=== PATIENT | male | born 1940 | race Caucasian/White ===

== ENCOUNTER 2016-12-02 18:45 | Emergency (ER) | payer MEDICARE ==
[~2016-12-02] VITALS: Ht 172.7 cm; Wt 75.0 kg
[~2016-12-02 18:45] MED LIST: AMLO5TAB22 PO; ASPI81 PO; BENA20 PO; KLOR20TA6 PO; NITR.3 SL; POTA-243 PO; SIMV40 PO; TOPR25TA2 PO; WARF5 PO; WARF7.5 PO
[2016-12-02 18:48] VITALS: BP 198/80; PULSE 60; RESP 20; TEMP 97.7; O2SAT 98
[2016-12-02] MEDS ORDERED: SODIUM CHLORIDE 0.9% FLUSH 10 ML FLUSH IV FLUSH PRN (19:15)
[2016-12-02] MEDS ORDERED: MIDAZOLAM HCL 2 MG/2 ML VIAL IV PUSH ONE (19:15)
[2016-12-02] MEDS ORDERED: GLUCAGON 1 MG/ML VIAL IV PUSH ONE (19:15)
--- NOTE | 2016-12-02 19:27 | PD ---
HPI . Esophageal foreign body Chief Complaint: Foreign Body Time Seen by Provider: 19:01 Travel History International Travel<30 days: No Contact w/Intl Traveler<30days: No Traveled to known affect area: No History of Present Illness HPI Patient presents with the chief complaint of an esophageal foreign body. He has been having this sensation for about 3 days now. He states that he has been able to tolerate some food. His disagrees with this. She states that he has had a choking sensation after supper the last 3 nights and that he is spitting up "phlegm." They do report a previous similar history which required EGD for removal of the food bolus. Patient reports no pain. It is difficult for me to get a handle on the severity of his symptoms because he is stating that he is tolerating some food and liquid while his is stating that he has been regurgitating. PFSH Past Medical History Hx Anticoagulant Therapy: Yes Asthma: No Atrial Fibrillation: Yes Autoimmune Disease: No Blood Disorders: No Heart Rhythm Problems: Yes (AF) Cancer: Yes (Skin cancer ) Cardiac Catheterization: Yes Cardiovascular Problems: Yes ([facility] heart valve) High Cholesterol: Yes Chemotherapy: No COPD: No Diminished Hearing: No Endocrine: No Genitourinary: No Hypertension: Yes Immune Disorder: No Implanted Vascular Access Dvce: Yes Neurologic: No Psychiatric: No Reproductive: No Respiratory: No Immunizations Current: Yes Radiation Therapy: No Sleep Apnea: No Past Surgical History Abdominal Surgery: Yes (gall bladder and appendix) Appendectomy: Yes Body Medical Devices: Heart Valve Cardiac Surgery: Yes (AVR) Cholecystectomy: Yes Ear Surgery: No Endocrine Surgery: No Eye Surgery: No Genitourinary Surgery: No Gynecologic Surgery: No Hysterectomy: Yes (HTN, AVR) Oral Surgery: No Valve Replacement: Yes (AVR) Social History Alcohol Use: No Tobacco Use: No Substance Use: No Allergies-Medications (Allergen,Severity, Reaction): Coded Allergies: No Known Allergies (Unverified , 12/02/16) Reported Meds & Prescriptions Reported Meds & Active Scripts Active Review of Systems Except as stated in HPI: all other systems reviewed are Neg General / Constitutional: No: Fever, Chills Gastrointestinal: Positive: Dysphagia, Other (esophageal foreign body sensation ), No: Nausea, Vomiting, Diarrhea, Abdominal Pain Physical Exam Narrative GENERAL: Healthy-appearing man in no acute distress. SKIN: Warm and dry. HEAD: Atraumatic. Normocephalic. EYES: Pupils equal and round. Extraocular movements are intact. ENT: No nasal bleeding or discharge. Mucous membranes pink and moist. NECK: Trachea midline. Neck is supple. CARDIOVASCULAR: Regular rate and rhythm. Mechanical heart valve. RESPIRATORY: No accessory muscle use. Lungs are clear. GASTROINTESTINAL: Abdomen soft, non-tender, nondistended. MUSCULOSKELETAL: No obvious deformities. No edema. NEUROLOGICAL: Awake and alert. No obvious cranial nerve deficits. Motor grossly within normal limits. Normal speech. PSYCHIATRIC: Appropriate mood and affect; insight and judgment normal. Data Data Last Documented VS Vital Signs Date Time Temp Pulse Resp B/P Pulse Ox O2 Delivery O2 Flow Rate FiO2 12/02/16 18:48 97.7 60 20 198/80 98 Room Air Orders Basic Metabolic Panel (Bmp) (12/02/16 19:12) Complete Blood Count With Diff (12/02/16 19:12) Iv Access Insert/Monitor (12/02/16 19:12) Sodium Chloride 0.9% Flush (Ns Flush) (12/02/16 19:15) Prothrombin Time / Inr (Pt) (12/02/16 19:12) Glucagon Inj (Glucagon Inj) (12/02/16 19:15) Fentanyl Inj (Fentanyl Inj) (12/02/16 19:15) Midazolam Inj (Versed Inj) (12/02/16 19:15) Labs Laboratory Tests Test 12/02/16 19:25 White Blood Count 6.6 TH/MM3 Red Blood Count 4.50 MIL/MM3 Hemoglobin 13.9 GM/DL Hematocrit 40.0 % Mean Corpuscular Volume 88.8 FL Mean Corpuscular Hemoglobin 30.9 PG Mean Corpuscular Hemoglobin 34.8 % Concent Red Cell Distribution Width 13.6 % Platelet Count 185 TH/MM3 Mean Platelet Volume 7.5 FL Neutrophils (%) (Auto) 50.0 % Lymphocytes (%) (Auto) 34.8 % Monocytes (%) (Auto) 10.2 % Eosinophils (%) (Auto) 4.3 % Basophils (%) (Auto) 0.7 % Neutrophils # (Auto) 3.3 TH/MM3 Lymphocytes # (Auto) 2.3 TH/MM3 Monocytes # (Auto) 0.7 TH/MM3 Eosinophils # (Auto) 0.3 TH/MM3 Basophils # (Auto) 0.0 TH/MM3 CBC Comment DIFF FINAL Differential Comment Prothrombin Time 25.0 SEC Prothromb Time International 2.2 RATIO Ratio Carbon Dioxide Level 31.6 MEQ/L Blood Urea Nitrogen 11 MG/DL Creatinine 0.87 MG/DL Estimat Glomerular Filtration 85 ML/MIN Rate Random Glucose 97 MG/DL Calcium Level 8.9 MG/DL MDM Medical Decision Making Medical Screen Exam Complete: Yes Emergency Medical Condition: Yes Medical Record Reviewed: Yes (patient was seen here on 12/25/15 with similar complaints. He was taken for EGD and was found to have a fluid bolus of the above the upper esophageal sphincter. The esophagus looked otherwise normal.) Differential Diagnosis Differential diagnosis includes but is not limited to partial esophageal obstruction, complete esophageal obstruction, foreign-body sensation Narrative Course Patient presents complaining with an esophageal foreign body. He is on Coumadin because of his artificial valve. I have ordered routine labs including an INR. In the meantime, I will give him a dose of fentanyl and Versed for relaxation and a dose of glucagon. I will then give him a fluid challenge. The patient feels that the foreign body has completely resolved. He was able to tolerate fluids without any difficulty. Diagnosis Primary Impression: Esophageal foreign body Qualified Code: T18.108A - Esophageal foreign body, initial encounter Patient Instructions: Esophageal Foreign Body (ED), General Instructions Additional Instructions: Follow-up with your md psychiatry for further evaluation. Chew your food well. Disposition: 01 DISCHARGE HOME Condition: Stable Shyanne Rankin MD December 02, 2016 19:27
[2016-12-02 19:35] LABS: AUTOMATED NEUTROPHIL # 3.3 TH/MM3 (1.8-7.7); BASOPHIL % 0.7 % (0.0-2.0); EOSINOPHIL # 0.3 TH/MM3 (0-0.4); EOSINOPHIL % 4.3 % (0.0-4.0); HEMO FLAGS DIFF FINAL; LYMPH % 34.8 % (9.0-44.0); LYMPHOCYTE # 2.3 TH/MM3 (1.0-4.8); MEAN CELL VOLUME 88.8 FL (80.0-100.0); MEAN CORPUSCULAR HEMOGLOBIN 30.9 PG (27.0-34.0); MEAN CORPUSCULAR HGB CONC 34.8 % (32.0-36.0); MONO % 10.2 % (0.0-8.0); PLATELET COUNT 185 TH/MM3 (150-450); RED CELL DISTRIBUTION WIDTH 13.6 % (11.6-17.2); WHITE BLOOD COUNT 6.6 TH/MM3 (4.0-11.0)
[2016-12-02 19:45] LABS: INTERNATIONAL NORMALIZED RATIO 2.2 RATIO
[2016-12-02 20:03] LABS: BICARBONATE 31.6 MEQ/L (21.0-32.0)
[2016-12-02] MEDS ORDERED: COUM7.5T PO (20:36)
[2016-12-02] MEDS ORDERED: SIMV40TA PO (20:36)
[2016-12-02] MEDS ORDERED: AMLO5TAB2 PO (20:36)
[2016-12-02] MEDS ORDERED: POTA-163 PO (20:36)
[2016-12-02] MEDS ORDERED: TOPR25TA PO (20:36)
[2016-12-02] MEDS ORDERED: ASPI81CH CHEW (20:36)
[2016-12-02] MEDS ORDERED: COUM5TAB PO (20:36)
[2016-12-02] MEDS ORDERED: LOTE20TA PO (20:36)
[2016-12-02 20:40] LABS: POTASSIUM 4.3 MEQ/L (3.5-5.1)
== END 2016-12-02 21:38 | disposition home or self-care (01) ==
LOC: NEPD 18:45
DX: T18.128A Food in esophagus causing other injury, initial encounter (principal); I48.91 Unspecified atrial fibrillation; I10 Essential (primary) hypertension; X58.XXXA Exposure to other specified factors, initial encounter
CPT/HCPCS: 80048; 85025; 85610; 96374; 96375; 99283; J1610; J3010

== ENCOUNTER → 2017-06-09 | Outpatient (CLI) | payer MEDICARE ==
[~2017-06-09] MED LIST changes: +AMLO5TAB2 PO; -AMLO5TAB22 PO; +ASPI-516 CHEW; -ASPI81 PO; -BENA20 PO; +COUM5TAB PO; +COUM7.5T PO; -KLOR20TA6 PO; +LOTE20TA PO; -NITR.3 SL; +POTA-163 PO; -POTA-243 PO; -SIMV40 PO; +SIMV40TA PO; +TOPR25TA PO; -TOPR25TA2 PO; -WARF5 PO; -WARF7.5 PO
[2017-06-09 14:32] LABS: HDL CHOLESTEROL 52.3 MG/DL (40.0-60.0); INDIRECT BILIRUBIN 0.4 MG/DL (0.0-0.8); TOTAL BILIRUBIN ADULT 0.6 MG/DL (0.2-1.0)
== END ==
LOC: PLAB 07:44
PROVIDERS: ATTEND Internal Medicine Cardiovascular Disease
DX: Z79.899 Other long term (current) drug therapy (principal)
CPT/HCPCS: 36415; 80061; 80076

== ENCOUNTER 2017-07-05 10:38 | Emergency (ER) | payer MEDICARE ==
[~2017-07-05] VITALS: Ht 172.7 cm; Wt 71.3 kg
[2017-07-05 10:41] VITALS: BP 149/80; PULSE 102; RESP 14; TEMP 98.6; O2SAT 98
[2017-07-05] MEDS ORDERED: ATOR40TA16 PO (10:56)
[2017-07-05 10:57] VITALS: BP 138/73; PULSE 72; RESP 18; O2SAT 98
[2017-07-05 11:22] LABS: AUTOMATED NEUTROPHIL # 6.7 TH/MM3 (1.8-7.7); BASOPHIL # 0.1 TH/MM3 (0-0.2); BASOPHIL % 1.5 % (0.0-2.0); EOSINOPHIL # 0.1 TH/MM3 (0-0.4); EOSINOPHIL % 1.6 % (0.0-4.0); LYMPH % 20.2 % (9.0-44.0); LYMPHOCYTE # 1.8 TH/MM3 (1.0-4.8); MEAN CELL VOLUME 89.2 FL (80.0-100.0); MEAN CORPUSCULAR HGB CONC 33.6 % (32.0-36.0); NEUT % 72.7 % (16.0-70.0); PLATELET COUNT 219 TH/MM3 (150-450); RED BLOOD COUNT 4.93 MIL/MM3 (4.50-5.90); RED CELL DISTRIBUTION WIDTH 13.2 % (11.6-17.2); WHITE BLOOD COUNT 9.1 TH/MM3 (4.0-11.0)
[2017-07-05 11:24] LABS: HEMO FLAGS DIFF FINAL
[2017-07-05 11:30] LABS: CHLORIDE 101 MEQ/L (98-107); POTASSIUM 4.3 MEQ/L (3.5-5.1); SODIUM (NA) 135 MEQ/L (136-145)
[2017-07-05 11:33] LABS: APTT (PATIENT) 38.9 SEC (24.3-30.1); INTERNATIONAL NORMALIZED RATIO 3.9 RATIO; PROTHROMBIN TIME - PATIENT 38.7 SEC (9.8-11.6)
[2017-07-05 11:34] LABS: ANION GAP 6 MEQ/L (5-15); BICARBONATE 27.7 MEQ/L (21.0-32.0); MAGNESIUM 2.2 MG/DL (1.5-2.5)
[2017-07-05 11:35] LABS: BLOOD UREA NITROGEN 12 MG/DL (7-18)
[2017-07-05 11:37] LABS: ALT (GPT) 30 U/L (12-78); AST (GOT) 31 U/L (15-37); GLOMERULAR FILTRATION RATE 90 ML/MIN (>89)
[2017-07-05 11:38] VITALS: BP 116/73; PULSE 84; RESP 20; O2SAT 98
[2017-07-05 11:39] LABS: TOTAL BILIRUBIN ADULT 0.8 MG/DL (0.2-1.0)
[2017-07-05 11:40] LABS: ALKALINE PHOSPHATASE 68 U/L (45-117)
--- NOTE | 2017-07-05 12:07 | PD ---
HPI Chief Complaint: Cardiac Complaint Time Seen by Provider: 10:54 Travel History International Travel<30 days: No Contact w/Intl Traveler<30days: No Traveled to known affect area: No History of Present Illness HPI This is a 77-year-old male who presents to the emergency department with palpitations that have been going on for 3-4 days, constant, moderate severity, worse with exertion, improved with rest. He says his heart rate usually runs in the 50s to 60s but is been running in the 80s to 100 range. He says he feels like he is in atrial fibrillation. He says he just saw Dr. Sanders one week ago and had a normal checkup including an echo. He doesn't think he was in atrial fibrillation at that time. He denies any chest pain or trouble breathing and denies any leg swelling. He is on Coumadin and has an aortic valve replacement. PFSH Past Medical History Hx Anticoagulant Therapy: Yes Asthma: No Atrial Fibrillation: Yes Autoimmune Disease: No Blood Disorders: No Heart Rhythm Problems: Yes (AF) Cancer: Yes (Skin cancer ) Cardiac Catheterization: Yes Cardiovascular Problems: Yes (aortic valve replacement) High Cholesterol: Yes Chemotherapy: No COPD: No Diminished Hearing: No Endocrine: No Genitourinary: No Hypertension: Yes Immune Disorder: No Implanted Vascular Access Dvce: Yes Neurologic: No Psychiatric: No Reproductive: No Respiratory: No Immunizations Current: Yes Radiation Therapy: No Sleep Apnea: No Tetanus Vaccination: > 5 Years Influenza Vaccination: No ?: Not Past Surgical History Abdominal Surgery: Yes (gall bladder and appendix) Appendectomy: Yes Body Medical Devices: Heart Valve Cardiac Surgery: Yes (AVR) Cholecystectomy: Yes Ear Surgery: No Endocrine Surgery: No Eye Surgery: No Genitourinary Surgery: No Gynecologic Surgery: No Hysterectomy: Yes (HTN, AVR) Oral Surgery: No Valve Replacement: Yes (AVR) Social History Alcohol Use: No Tobacco Use: No Substance Use: No Allergies-Medications (Allergen,Severity, Reaction): Coded Allergies: No Known Allergies (Unverified Adverse Reaction, Unknown, 07/05/17) Reported Meds & Prescriptions Reported Meds & Active Scripts Active Reported Atorvastatin (Atorvastatin Calcium) 40 Mg Tab 40 Mg PO BID Coumadin (Warfarin) 7.5 Mg Tab 7.5 Mg PO EVERYDAY BUT MON Coumadin (Warfarin) 5 Mg Tab 5 Mg PO MONDAYS PRN Potassium Chloride ER (Potassium Chloride) 20 Meq Tab 30 Meq PO 10 MG AM,20MG PM Toprol XL (Metoprolol Succinate) 25 Mg Tab 25 Mg PO BID Lotensin (Benazepril HCl) 20 Mg Tab 20 Mg PO BID Aspirin 81 Mg Chew 81 Mg CHEW DAILY Amlodipine (Amlodipine Besylate) 5 Mg Tab 5 Mg PO BID Review of Systems Except as stated in HPI: all other systems reviewed are Neg Physical Exam Narrative GENERAL:Well appearing, no acute distress SKIN: Focused skin assessment warm and dry. HEAD: Atraumatic. Normocephalic. EYES: Pupils equal and round. No injection or drainage. ENT: Moist mucous membranes NECK: Trachea midline. CARDIOVASCULAR: Irregularly irregular. No murmur appreciated. RESPIRATORY: Clear to auscultation. Breath sounds equal bilaterally. GASTROINTESTINAL: Abdomen soft, non-tender, nondistended. MUSCULOSKELETAL: No obvious deformities. NEUROLOGICAL: Awake and alert. No obvious cranial nerve deficits. Moving all extremities.. PSYCHIATRIC: Appropriate mood and affect; insight and judgment normal. Data Data Last Documented VS Vital Signs Date Time Temp Pulse Resp B/P (MAP) Pulse Ox O2 Delivery O2 Flow Rate FiO2 07/05/17 11:38 84 20 116/73 (87) 98 Room Air 07/05/17 10:41 98.6 Orders Orders Complete Blood Count With Diff (07/05/17 11:08) Comprehensive Metabolic Panel (07/05/17 11:08) Magnesium (Mg) (07/05/17 11:08) Prothrombin Time / Inr (Pt) (07/05/17 11:09) Act Partial Throm Time (Ptt) (07/05/17 11:09) Electrocardiogram (07/05/17 ) Labs Laboratory Tests Test 07/05/17 11:10 White Blood Count 9.1 TH/MM3 Red Blood Count 4.93 MIL/MM3 Hemoglobin 14.8 GM/DL Hematocrit 44.0 % Mean Corpuscular Volume 89.2 FL Mean Corpuscular Hemoglobin 30.0 PG Mean Corpuscular Hemoglobin Concent 33.6 % Red Cell Distribution Width 13.2 % Platelet Count 219 TH/MM3 Mean Platelet Volume 7.6 FL Neutrophils (%) (Auto) 72.7 % Lymphocytes (%) (Auto) 20.2 % Monocytes (%) (Auto) 4.0 % Eosinophils (%) (Auto) 1.6 % Basophils (%) (Auto) 1.5 % Neutrophils # (Auto) 6.7 TH/MM3 Lymphocytes # (Auto) 1.8 TH/MM3 Monocytes # (Auto) 0.4 TH/MM3 Eosinophils # (Auto) 0.1 TH/MM3 Basophils # (Auto) 0.1 TH/MM3 CBC Comment DIFF FINAL Differential Comment Prothrombin Time 38.7 SEC Prothromb Time International Ratio 3.9 RATIO Activated Partial Thromboplast Time 38.9 SEC Blood Urea Nitrogen 12 MG/DL Creatinine 0.83 MG/DL Random Glucose 123 MG/DL Total Protein 7.3 GM/DL Albumin 3.6 GM/DL Calcium Level 9.1 MG/DL Magnesium Level 2.2 MG/DL Alkaline Phosphatase 68 U/L Aspartate Amino Transf (AST/SGOT) 31 U/L Alanine Aminotransferase (ALT/SGPT) 30 U/L Total Bilirubin 0.8 MG/DL Sodium Level 135 MEQ/L Potassium Level 4.3 MEQ/L Chloride Level 101 MEQ/L Carbon Dioxide Level 27.7 MEQ/L Anion Gap 6 MEQ/L Estimat Glomerular Filtration Rate 90 ML/MIN [facility] Medical Decision Making Medical Screen Exam Complete: Yes Emergency Medical Condition: Yes Interpretation(s) afebrile, mild tachycardia, hypertensive No leukocytosis Mild hyponatremia INR is 3.9 EKG: Atrial fibrillation, left axis deviation, left ventricular hypertrophy, lateral ST depressions in 1 and aVL Differential Diagnosis Atrial fibrillation, electrolyte abnormality, myocardial infarction, rapid ventricular response Narrative Course This is a 77-year-old male who presents to the emergency department with atrial fibrillation that has been going on for 4 days. His INR is slightly supratherapeutic. Electrolytes were obtained which were all reassuring. I spoke to Dr. sanders would like the patient to drive over to the outpatient cardiology unit at [place] for a cardioversion. The patient was instructed not to eat or drink. He will be discharged. Diagnosis Primary Impression: Atrial fibrillation Qualified Codes: I48.0 - Paroxysmal atrial fibrillation Patient Instructions: General Instructions Additional Instructions: If you develop severe chest pain, shortness of breath, sweating, lightheadedness , dizziness or difficulty breathing return to the emergency department immediately. Follow-up immediately with Dr. Sanders at the outpatient cardiology catheterization lab (Doc-U) at [place] immediately following your discharge. Do not eat or drink anything. Med/Other Pt SpecificInfo: No Change to Meds Disposition: 01 DISCHARGE HOME Condition: Stable Elyssa Menendez MD Jul 05, 2017 12:07
--- NOTE | 2017-07-05 17:51 | EKG ---
Date Performed: 07/05/2017 Time Performed: 10:54:38 PTAGE: 77 years EKG: ATRIAL FIBRILLATION WITH ABERRANT CONDUCTION OR VENTRICULAR PREMATURE COMPLEXES MARKED LEFT AXIS DEVIATION MODERATE INTRAVENTRICULAR CONDUCTION DELAY VOLTAGE CRITERIA FOR LVH NONSPECIFIC T-WAV E ABNORMALITY Since previous tracing, no significant change noted ABNORMAL ECG PREVIOUS TRACING : 11/06/2015 14.22.54 DOCTOR: Kait Austin Interpretating Date/Time 07/05/2017 17:50:51
== END 2017-07-05 12:41 | disposition home or self-care (01) ==
LOC: PHED 10:38
DX: I48.0 Paroxysmal atrial fibrillation (principal); R94.31 Abnormal electrocardiogram [ECG] [EKG]; I10 Essential (primary) hypertension; E78.00 Pure hypercholesterolemia, unspecified; Z95.2 Presence of prosthetic heart valve; Z79.01 Long term (current) use of anticoagulants; Z85.828 Personal history of other malignant neoplasm of skin
CPT/HCPCS: 80053; 83735; 85025; 85610; 85730; 93005

== ENCOUNTER 2017-07-05 13:10 | Day surgery (SDC) | payer MEDICARE ==
[~2017-07-05 13:10] MED LIST changes: +ATOR40TA16 PO
[2017-07-05] MEDS ORDERED: LACTATED RINGER'S 1000 ML IV PRN (14:15)
[2017-07-05] MEDS ORDERED: CHLORHEXIDINE GLUCONATE 2 % 1 PACK (2 CLOTHS) TOPICAL PRN (14:15)
[2017-07-05] MEDS ORDERED: METOPROLOL TARTRATE 25 MG TAB PO PRN (14:15)
[2017-07-05] MEDS ORDERED: SODIUM CHLORID 0.9% 500 ML IV PRN (14:15)
[2017-07-05] MEDS ORDERED: INSULIN HUMAN REGULAR 1,000 UNITS/10 ML VIAL SQ PRN (14:15)
[2017-07-05] MEDS ORDERED: POVIDONE IODINE 5% (ANTISEPSIS KIT) 4 APPLICATIONS EACH NARE PRN (14:15)
[2017-07-05] MEDS ORDERED: PROPOFOL 200 MG/20 ML AMP ONE (14:16)
--- NOTE | 2017-07-06 12:42 | EKG ---
Date Performed: 07/05/2017 Time Performed: 14:52:38 PTAGE: 77 years EKG: Probable atrial fibrillation Left axis deviation Inferior infarct - age undetermined Abnorm al ECG PREVIOUS TRACING : 07/05/2017 10.54 Since previous tracing, no significant change noted DOCTOR: Efraín Chilel Interpretating Date/Time 07/06/2017 12:41:03
--- NOTE | 2017-07-06 13:45 | MR ---
cc: VALENTÍN WISEMAN DATE 07/05/2017 INDICATION Atrial fibrillation. PROCEDURE PERFORMED DC cardioversion PROCEDURE After the patient was sedated by Anesthesia, a 200 joule biphasic shock was delivered that converted the patient into sinus rhythm. The patient remained stable and was discharged home in stable condition. DIAGNOSIS Successful cardioversion of atrial fibrillation. DISPOSITION Mr. Barth will continue his current medical program including anticoagulation. I will see him back for followup in our office after discharge. Valentín Wiseman MD OQ/SSB /2:34 PM /1:30 PM MTDConrad
== END 2017-07-05 16:00 | disposition home or self-care (01) ==
LOC: HDOC 13:10 → HDIC 13:11 → HDOC 16:00
PROVIDERS: ATTEND Internal Medicine Interventional Cardiology
DX: I48.0 Paroxysmal atrial fibrillation (principal); I34.0 Nonrheumatic mitral (valve) insufficiency; I49.3 Ventricular premature depolarization; I36.1 Nonrheumatic tricuspid (valve) insufficiency; E78.5 Hyperlipidemia, unspecified; E87.6 Hypokalemia; I10 Essential (primary) hypertension; Z95.4 Presence of other heart-valve replacement; R94.31 Abnormal electrocardiogram [ECG] [EKG]; Z79.01 Long term (current) use of anticoagulants; Z85.828 Personal history of other malignant neoplasm of skin
CPT/HCPCS: 92960; 93005

== ENCOUNTER → 2017-10-25 | Outpatient (CLI) | payer MEDICARE ==
[~2017-10-25] MED LIST changes: -SIMV40TA PO
[2017-10-25 10:45] LABS: AST (GOT) 28 U/L (15-37); BICARBONATE 28.4 MEQ/L (21.0-32.0); BLOOD UREA NITROGEN 7 MG/DL (7-18); CALCIUM 9.1 MG/DL (8.5-10.1); CHLORIDE 93 MEQ/L (98-107); CREATININE 0.71 MG/DL (0.60-1.30); GLOMERULAR FILTRATION RATE 107 ML/MIN (>89); GLUCOSE,FASTING 93 MG/DL (74-99); SODIUM (NA) 128 MEQ/L (136-145)
[2017-10-25 10:46] LABS: AUTOMATED NEUTROPHIL # 5.4 TH/MM3 (1.8-7.7); BASOPHIL # 0.1 TH/MM3 (0-0.2); BASOPHIL % 0.9 % (0.0-2.0); EOSINOPHIL # 0.2 TH/MM3 (0-0.4); EOSINOPHIL % 2.3 % (0.0-4.0); HEMATOCRIT 41.5 % (39.0-51.0); HEMOGLOBIN 14.3 GM/DL (13.0-17.0); LYMPH % 20.9 % (9.0-44.0); LYMPHOCYTE # 1.7 TH/MM3 (1.0-4.8); MEAN CELL VOLUME 88.6 FL (80.0-100.0); MEAN CORPUSCULAR HEMOGLOBIN 30.6 PG (27.0-34.0); MEAN CORPUSCULAR HGB CONC 34.5 % (32.0-36.0); MEAN PLATELET VOLUME 7.6 FL (7.0-11.0); MONO % 7.7 % (0.0-8.0); MONOCYTE # 0.6 TH/MM3 (0-0.9); NEUT % 68.2 % (16.0-70.0); PLATELET COUNT 233 TH/MM3 (150-450); RED BLOOD COUNT 4.69 MIL/MM3 (4.50-5.90); RED CELL DISTRIBUTION WIDTH 13.7 % (11.6-17.2)
[2017-10-25 10:47] LABS: ALT (GPT) 28 U/L (12-78); CHOLESTEROL 111 MG/DL (120-200); TRIGLYCERIDES 52 MG/DL (42-150)
[2017-10-25 10:49] LABS: ALKALINE PHOSPHATASE 69 U/L (45-117); CHOLESTEROL/ HDL RATIO 1.94 RATIO; HDL CHOLESTEROL 57.1 MG/DL (40.0-60.0); LDL CHOLESTEROL 44 MG/DL (0-99); TOTAL BILIRUBIN ADULT 0.8 MG/DL (0.2-1.0); TOTAL PROTEIN 7.3 GM/DL (6.4-8.2)
== END ==
LOC: PLAB 08:55
PROVIDERS: ATTEND Internal Medicine
DX: E78.2 Mixed hyperlipidemia (principal); Z12.5 Encounter for screening for malignant neoplasm of prostate; Z12.11 Encounter for screening for malignant neoplasm of colon; Z79.899 Other long term (current) drug therapy
CPT/HCPCS: 36415; 80053; 80061; 85025; G0103